=== PATIENT | female | born 1955 | race American Indian/Alaskan Native ===

== ENCOUNTER 2024-02-12 10:55 | Day surgery (SDC) | payer MEDICARE, BC ==
[2024-02-12] MEDS: Polymyxin B/Trimethoprim 10 ML Bottle EYERT SCH (11:38)
[2024-02-12] MEDS: Brimonidine 0.2% Ophth Soln 5 ML Bottle EYERT SCH (11:42)
[2024-02-12] MEDS: Phenylephrine 2.5% Ophth Soln 2 ML Bot EYERT SCH (11:48)
[2024-02-12] MEDS: Tropicamide 1% Ophth Soln 3 ML Bottle EYERT SCH (11:52)
[2024-02-12] MEDS: Tetracaine HCl/PF 0.5% 4 ML Bottle EYEBOTH SCH (13:04)
[2024-02-12] MEDS: Lidocaine 1% PF 2 ML SDV INJECT SCH (13:27)
[2024-02-12] MEDS: Cefuroxime 10 MG/ML SYRINGE EYERT SCH (13:42)
[2024-02-12] MEDS: Pilocarpine 4% Ophth Soln 15 ML Bot EYERT SCH (13:43)
== END 2024-02-12 13:52 | disposition home or self-care (01) ==
LOC: EDSEX 10:55 → JD.SDS 10:55
PROVIDERS: ATTEND Ophthalmology
DX: H25.812 Combined forms of age-related cataract, left eye (principal); H21.41 Pupillary membranes, right eye; H21.82 Plateau iris syndrome (post-iridectomy) (postprocedural); H11.823 Conjunctivochalasis, bilateral; H02.831 Dermatochalasis of right upper eyelid; H02.834 Dermatochalasis of left upper eyelid; H57.813 Brow ptosis, bilateral; Z79.899 Other long term (current) drug therapy
CPT/HCPCS: 66982; A9270; J0697; J3490; V2632

== ENCOUNTER 2024-03-18 07:55 | Day surgery (SDC) | payer BC, MEDICARE ==
[~2024-03-18 07:55] MED LIST: Cefuroxime 10 MG/ML SYRINGE EYELF SCH; Lidocaine 1% PF 2 ML SDV INJECT SCH; Pilocarpine 4% Ophth Soln 15 ML Bot EYELF SCH
[2024-03-18] MEDS: Polymyxin B/Trimethoprim 10 ML Bottle EYELF SCH (08:17)
[2024-03-18] MEDS: Brimonidine 0.2% Ophth Soln 5 ML Bottle EYELF SCH (08:22)
[2024-03-18] MEDS: Phenylephrine 2.5% Ophth Soln 2 ML Bot EYELF SCH (08:27)
[2024-03-18] MEDS: Tropicamide 1% Ophth Soln 3 ML Bottle EYELF SCH (08:33)
[2024-03-18] MEDS: Tetracaine HCl/PF 0.5% 4 ML Bottle EYEBOTH SCH (10:07)
== END 2024-03-18 10:41 | disposition home or self-care (01) ==
LOC: JD.SDS 07:55
PROVIDERS: ATTEND Ophthalmology
DX: H25.812 Combined forms of age-related cataract, left eye (principal); H21.81 Floppy iris syndrome; H21.42 Pupillary membranes, left eye
CPT/HCPCS: A9270-GY; J3490